=== PATIENT | female | born 1940 | race Caucasian/White ===

== ENCOUNTER 2018-11-09 22:11 | Emergency (ER) | payer OTHER ==
[~2018-11-09] VITALS: Ht 160 cm; Wt 76.7 kg
[2018-11-09] MEDS ORDERED: MORPHINE SULFATE 4 MG/ML SYR/VIAL IV ONE (23:00)
[2018-11-09] MEDS ORDERED: ASPirin 81 mg TAB PO ONE (23:00)
[2018-11-09] MEDS ORDERED: ONDANSETRON HCL 4 MG/2 ML VIAL IV ONE (23:00)
[2018-11-09 23:08] LABS: Basophils # (auto) 0 uL; Basophils % (auto) 0.4 % (0.0-2.0); Eosinophils # (auto) 0.1 uL; Eosinophils % (auto) 0.9 % (0.0-7.0); Hematocrit 42.2 % (36.0-46.0); Hemoglobin 14.5 g/dL (12.2-16.2); Lymphocytes # (auto) 3.4 uL; Lymphocytes % (auto) 29.2 % (10.0-50.0); Mean Corpuscular Hemoglobin 30.7 pg (28.0-32.0); Mean Corpuscular Hgb Conc. 34.4 g/dL (32.0-36.0); Mean Corpuscular Volume 89.1 fL (80.0-100.0); Monocytes # (auto) 1.1 uL; Monocytes % (auto) 9.3 % (0.0-12.0); Neutrophils # (auto) 6.9 uL; Neutrophils % (auto) 60.2 % (37.0-80.0); Platelet Count (auto) 206 10^3/uL (140-450); Red Blood Cells 4.73 10^6/uL (4.0-5.20); Red Cell Distribution Width 12.9 % (11.8-14.3); White Blood Cell 11.5 10^3/uL (4.4-10.8)
[2018-11-09 23:27] LABS: INR 3.23 (0.9-1.15); Prothrombin Time 32.3 sec (9.27-12.13)
[2018-11-09] MEDS ORDERED: LORazepam 2MG/ML-1ML VIAL IV ONE (23:30)
[2018-11-09 23:50] LABS: Anion Gap 14 (5-15); Carbon Dioxide 19 mmol/L (21-32); Chloride 101 mmol/L (98-107); Potassium 3.6 mmol/L (3.5-5.1); Sodium 134 mmol/L (136-145)
[2018-11-09 23:51] LABS: Alkaline Phosphatase 104 U/L (45-117); BUN/Creatinine Ratio 23.5; Blood Urea Nitrogen 27 mg/dL (7-18); GFR African American 58 mL/min; GFR Non-African American 48 mL/min; Glucose 116 mg/dL (74-106)
[2018-11-09 23:52] LABS: Alanine Aminotransferase 28 U/L (13-56); Albumin 4.1 g/dL (3.4-5.0); Aspartate Aminotransferase 34 U/L (15-37); Bilirubin, Total 0.6 mg/dL (0.2-1.0); Calcium 8.9 mg/dL (8.5-10.1); Magnesium 2.2 mg/dL (1.6-2.6); Total Protein 8.5 g/dL (6.4-8.2)
[2018-11-10] MEDS ORDERED: GABAPENTIN 100 MG CAP PO ONE
[2018-11-10] MEDS ORDERED: GABAPENTIN 300 MG CAP PO ONE ×2 (00:15)
[2018-11-10] MEDS ORDERED: methylPREDNISolone SOD SUCC 125 MG/2 ML VL IV ONE (00:30)
[2018-11-10] MEDS ORDERED: LIDOCAINE HCL 1 % PF INJ 2ML AMP IJ ONE (00:30)
[2018-11-10 01:28] VITALS: BP 132/56
[2018-11-10] MEDS ORDERED: HYDROcodone-ACET 10/325MG TAB PO ONE ×2 (01:45)
[2018-11-10] MEDS ORDERED: LIDOCAINE 1% HCL (LOCAL ANESTH.) INJ 20ML MDV ONE (01:46)
[2018-11-10] MEDS ORDERED: NITROGLYCERIN 0.4 MG SL TAB SL ONE (10:00)
== END 2018-11-10 02:57 | disposition home or self-care (01) ==
LOC: ER 22:11
DX: M12.811 Other specific arthropathies, not elsewhere classified, right shoulder (principal); M75.101 Unspecified rotator cuff tear or rupture of right shoulder, not specified as traumatic; M75.51 Bursitis of right shoulder; M75.01 Adhesive capsulitis of right shoulder; R07.89 Other chest pain; I11.0 Hypertensive heart disease with heart failure; I50.9 Heart failure, unspecified; Z95.0 Presence of cardiac pacemaker
CPT/HCPCS: 20610; 36415; 71045; 80053; 83735; 83880; 84443; 84484; 85025; 85379; 85610; 85730; 93005; 94761; 96374; 96375; 99284; J2001; J2060; J2270; J2405; J2930

== ENCOUNTER 2018-11-12 10:42 | Emergency (ER) | payer OTHER ==
[~2018-11-12] VITALS: Ht 160 cm; Wt 77.1 kg
[2018-11-12 11:23] LABS: Basophils # (auto) 0 uL; Basophils % (auto) 0.4 % (0.0-2.0); Eosinophils # (auto) 0 uL; Eosinophils % (auto) 0.3 % (0.0-7.0); Hematocrit 39.6 % (36.0-46.0); Hemoglobin 13.1 g/dL (12.2-16.2); Lymphocytes # (auto) 2.5 uL; Mean Corpuscular Hgb Conc. 33.1 g/dL (32.0-36.0); Mean Corpuscular Volume 90.4 fL (80.0-100.0); Monocytes # (auto) 1.1 uL; Neutrophils # (auto) 7.1 uL; Neutrophils % (auto) 66.3 % (37.0-80.0); Platelet Count (auto) 215 10^3/uL (140-450); Red Blood Cells 4.38 10^6/uL (4.0-5.20); Red Cell Distribution Width 13.3 % (11.8-14.3); White Blood Cell 10.7 10^3/uL (4.4-10.8)
[2018-11-12] MEDS ORDERED: SODIUM CHLORIDE 0.9% 1,000 ML IV ONE (11:23)
[2018-11-12 11:35] LABS: Prothrombin Time 40.6 sec (9.27-12.13)
[2018-11-12 11:39] LABS: Calcium 8.8 mg/dL (8.5-10.1); Potassium 4.6 mmol/L (3.5-5.1)
[2018-11-12 11:44] LABS: BUN/Creatinine Ratio 27.7; Bilirubin, Total 0.7 mg/dL (0.2-1.0); Total Protein 8.1 g/dL (6.4-8.2)
[2018-11-12 11:45] LABS: INR 4.11 (0.9-1.15)
[2018-11-12] MEDS ORDERED: IOHEXOL 300 MG/ML 100ML BOTTLE IJ ONE (11:49)
[2018-11-12 14:39] VITALS: BP 125/53
== END 2018-11-12 14:47 | disposition home or self-care (01) ==
LOC: ER 10:42
DX: M79.81 Nontraumatic hematoma of soft tissue (principal); M19.90 Unspecified osteoarthritis, unspecified site; I11.0 Hypertensive heart disease with heart failure; I50.9 Heart failure, unspecified
CPT/HCPCS: 36415; 80053; 84484; 85025; 85610; 85730; 93971; 99284; J7030; Q9967